=== PATIENT | male | born 1965 | race African-American/Black ===

== ENCOUNTER 2017-06-27 14:02 | Observation (INO) | payer SELFPAY ==
[~2017-06-27] VITALS: Ht 172.7 cm; Wt 82.6 kg
[2017-06-27] MEDS ORDERED: ASPIRIN 81 MG CHEW (CHILDREN'S ASA) PO ONE (14:15)
[2017-06-27 14:21] LABS: BASOPHILS # (AUTO) 0.1 10^3/uL (0.0-0.1); BASOPHILS % (AUTO) 1 % (0-10); EOSINOPHILS # (AUTO) 0.1 10^3/uL (0.0-0.3); EOSINOPHILS % (AUTO) 1 % (0-10); HEMATOCRIT 38 % (40-54); HEMOGLOBIN 14.1 G/DL (13.3-17.7); LYMPHOCYTES % (AUTO) 33 % (12-44); MEAN CORPUSCULAR HEMOGLOBIN 30 PG (25-34); MEAN CORPUSCULAR HGB CONC 37 G/DL (32-36); MEAN CORPUSCULAR VOLUME 81 FL (80-99); MEAN PLATELET VOLUME 11.2 FL (7.4-10.4); MONOCYTES # (AUTO) 0.5 X 10^3 (0.0-1.0); MONOCYTES % (AUTO) 5 % (0-12); NEUTROPHILS # (AUTO) 5.4 X 10^3 (1.8-7.8); NEUTROPHILS % (AUTO) 60 % (42-75); PLATELET COUNT 274 10^3/uL (130-400); RED BLOOD COUNT 4.69 10^6/uL (4.35-5.85); RED CELL DISTRIBUTION WIDTH 14.7 % (10.0-14.5)
--- NOTE | 2017-06-27 14:24 | ED Chest Pain ---
General Stated Complaint: CP Source: patient Exam Limitations: no limitations History of Present Illness Date Seen by Provider: Jun 27, 2017 Time Seen by Provider: 14:04 Initial Comments Here with report of central chest pain that goes to his back. She is very vague in the descriptions and admits to drinking quite a bit of beer today. He states that he basically started drinking after he got up this morning. States the chest pain started yesterday but he had to go to work. He works at [employer]. He did work all day yesterday and went home last night. This morning, after drinking quite a bit, he thought that he probably ought to get his chest pain checked out. It is unclear chest pain this morning but may have had some. He denies chest pain currently. He does admit to taking 2 aspirin but is not sure if they are baby aspirin or regular strength but they were from [facility]. Denies nausea, vomiting, sweating or weakness. 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 NTG SL INSTRUCTIONAL SYSTEMS SPECIALIST: No Associated Symptoms: back pain, No fatigue, No nausea/vomiting, No shortness of breath, No weakness Allergies and Home Medications Allergies Coded Allergies: No Known Drug Allergies (Unverified , 06/27/17) Review of Systems Constitutional: see HPI, No chills, No fever EENTM: No Symptoms Reported Respiratory: No Symptoms Reported Cardiovascular: See HPI, Chest Pain, Denies Edema Gastrointestinal: Denies Nausea, Denies Vomiting Genitourinary: No Symptoms Reported Musculoskeletal: see HPI, back pain, No neck pain Skin: no symptoms reported Psychiatric/Neurological: No Symptoms Reported All Other Systems Reviewed Negative Unless Noted: Yes Past Ahiqmnv-Luflmj-Tsywqi Hx Patient Social History Alcohol Use: Regular Use Recreational Drug Use: No Smoking Status: Never a Smoker Surgeries History of Surgeries: Yes Surgeries: Orthopedic Respiratory History of Respiratory Disorde: No Cardiovascular History of Cardiac Disorders: No Neurological History of Neurological Disord: No Genitourinary History of Genitourinary Disor: No Gastrointestinal History of Gastrointestinal Di: No Musculoskeletal History of Musculoskeletal Dis: No 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) Reviewed Nursing Assessment Reviewed/Agree w Nursing PMH: Yes Family Medical History Significant Family History: No Pertinent Family Hx Physical Exam Vital Signs Vital Signs - First Documented Capillary Refill : General Appearance: No Apparent Distress, WD/WN, Other (inebriated with slurred speech) HEENT: PERRL/EOMI, Pharynx Normal Neck: Non Tender, Supple Respiratory: Lungs Clear, Normal Breath Sounds Cardiovascular: Regular Rate, Rhythm, No Murmur Gastrointestinal: Non Tender, Soft Extremity: Normal Range of Motion, Non Tender Neurologic/Psychiatric: Alert, Oriented x3 Skin: Normal Color, Warm/Dry Progress/Results/Core Measures Results/Orders Lab Results Laboratory Tests Test 06/27/17 14:13 06/27/17 14:56 06/27/17 16:08 Range/Units White Blood Count 9.0 4.3-11.0 10^3/uL Red Blood Count 4.69 4.35-5.85 10^6/uL Hemoglobin 14.1 13.3-17.7 G/DL Hematocrit 38 L 40-54 % Mean Corpuscular Volume 81 80-99 FL Mean Corpuscular Hemoglobin 30 25-34 PG Mean Corpuscular Hemoglobin Concent 37 H 32-36 G/DL Red Cell Distribution Width 14.7 H 10.0-14.5 % Platelet Count 274 130-400 10^3/uL Mean Platelet Volume 11.2 H 7.4-10.4 FL Neutrophils (%) (Auto) 60 42-75 % Lymphocytes (%) (Auto) 33 12-44 % Monocytes (%) (Auto) 5 0-12 % Eosinophils (%) (Auto) 1 0-10 % Basophils (%) (Auto) 1 0-10 % Neutrophils # (Auto) 5.4 1.8-7.8 X 10^3 Lymphocytes # (Auto) 3.0 1.0-4.0 X 10^3 Monocytes # (Auto) 0.5 0.0-1.0 X 10^3 Eosinophils # (Auto) 0.1 0.0-0.3 10^3/uL Basophils # (Auto) 0.1 0.0-0.1 10^3/uL Prothrombin Time 11.9 L 12.2-14.7 SEC INR Comment 0.9 0.8-1.4 Activated Partial Thromboplast Time 25 24-35 SEC D-Dimer < 0.27 0.00-0.49 UG/ML Sodium Level 146 H 135-145 MMOL/L Potassium Level 4.7 3.6-5.0 MMOL/L Chloride Level 109 H 98-107 MMOL/L Carbon Dioxide Level 24 21-32 MMOL/L Anion Gap 13 5-14 MMOL/L Blood Urea Nitrogen 20 H 7-18 MG/DL Creatinine 1.22 0.60-1.30 MG/DL Estimat Glomerular Filtration Rate > 60 BUN/Creatinine Ratio 16 Glucose Level 85 70-105 MG/DL Calcium Level 9.2 8.5-10.1 MG/DL Magnesium Level 2.5 H 1.8-2.4 MG/DL Total Bilirubin 0.2 0.1-1.0 MG/DL Aspartate Amino Transf (AST/SGOT) 37 H 5-34 U/L Alanine Aminotransferase (ALT/SGPT) 27 0-55 U/L Alkaline Phosphatase 107 40-136 U/L Myoglobin 87.1 104.8 H 10.0-92.0 NG/ML Troponin I < 0.30 < 0.30 <0.30 NG/ML Total Protein 8.0 6.4-8.2 GM/DL Albumin 4.5 3.2-4.5 GM/DL Amylase Level 166 H 25-125 U/L Lipase 13 8-78 U/L Salicylates Level < 5.0 L 5.0-20.0 MG/DL Acetaminophen Level < 10 L 10-30 UG/ML Serum Alcohol 319 *H <10 MG/DL Urine Opiates Screen NEGATIVE NEGATIVE Urine Oxycodone Screen NEGATIVE NEGATIVE Urine Methadone Screen NEGATIVE NEGATIVE Urine Propoxyphene Screen NEGATIVE NEGATIVE Urine Barbiturates Screen NEGATIVE NEGATIVE Ur Tricyclic Antidepressants Screen NEGATIVE NEGATIVE Urine Phencyclidine Screen NEGATIVE NEGATIVE Urine Amphetamines Screen NEGATIVE NEGATIVE Urine Methamphetamines Screen NEGATIVE NEGATIVE Urine Benzodiazepines Screen NEGATIVE NEGATIVE Urine Cocaine Screen NEGATIVE NEGATIVE Urine Cannabinoids Screen NEGATIVE NEGATIVE My Orders Orders - YUMIKO BRITO MD Cbc With Automated Diff (06/27/17 14:10) Magnesium (06/27/17 14:10) Chest 1 View, Ap/Pa Only (06/27/17 14:10) Ekg Tracing (06/27/17 14:10) Cardiac Profile 1 (06/27/17 14:10) Comprehensive Metabolic Panel (06/27/17 14:10) Myoglobin Serum (06/27/17 14:10) Protime With Inr (06/27/17 14:10) Partial Thromboplastin Time (06/27/17 14:10) O2 (06/27/17 14:10) Monitor-Rhythm Ecg Trace Only (06/27/17 14:10) Lipid Panel (06/28/17 06:00) Aspirin Chewable Tablet (Baby Aspirin Ch (06/27/17 14:15) Saline Lock/Iv-Start (06/27/17 14:10) Lipase (06/27/17 14:10) Amylase (06/27/17 14:10) Fibrin Degradation Products (06/27/17 14:10) Acetaminophen (06/27/17 14:10) Alcohol (06/27/17 14:10) Drug Screen Stat (Urine) (06/27/17 14:10) Salicylate (06/27/17 14:10) Ns Iv 500 Ml (Sodium Chloride 0.9%) (06/27/17 14:25) Troponin I (06/27/17 16:28) Myoglobin Serum (06/27/17 16:28) Ns Iv 500 Ml (Sodium Chloride 0.9%) (06/27/17 16:28) Ekg Tracing (06/27/17 16:28) Medications Given in ED Current Medications Medications Dose Ordered Sig/Radha Route Start Time Stop Time Status Last Admin Dose Admin Aspirin 324 mg ONCE ONCE PO 06/27/17 14:15 06/27/17 14:16 DC 06/27/17 14:21 324 MG Sodium Chloride 500 ml @ 0 mls/hr Q0M ONCE IV 06/27/17 14:25 06/27/17 14:26 DC 06/27/17 14:45 0 MLS/HR Sodium Chloride 500 ml @ 0 mls/hr Q0M ONCE IV 06/27/17 16:28 06/27/17 16:30 DC 06/27/17 17:13 0 MLS/HR Vital Signs/I&O Vital Sign - Last 12Hours 06/27/17 06/27/17 06/27/17 14:04 14:04 14:04 Pulse 88 Resp 14 B/P (MAP) 169/110 (129) Pulse Ox 98 98 O2 Delivery Room Air Room Air Room Air Progress Note : Progress Note Seen and evaluated. IV, labs, EKG and chest x-ray ordered. ASA 324 mg by mouth ordered as patient's history is unreliable. Normal saline 500 mL bolus. We will add drug screen and alcohol screen given his current inebriation. 1530 : Patient still without chest pain. We will re-evaluate troponin and EKG at a greater than 2 hour ever and reevaluate for inability to send home safely. 1710 : EKG unchanged. Troponin still less than 0.30, myoglobin has elevated. In this setting, admission is indicated. I did discuss the case with Dr. Baldwin and she accepts patient for admission, observation status. I did discuss the case with Dr. Rodriguez and he accepts patient for consult. 2-D cardiac echo in the a.m. This all was discussed with the patient who agrees to admission. ECG Initial ECG Impression Date: Jun 27, 2017 Initial ECG Impression Time: 14:04 Initial ECG Rate: 89 Initial ECG Rhythm: Normal Sinus Comment Sinus rhythm with normal axis. No evidence of ST elevation. No previous available for comparison. Interpreted by me. EKG : EKG Time: 16:29 Rate: 87 ECG Comparisson: Unchanged ECG Impression: Normal Comment Sinus rhythm with left atrial abnormality. Overall unchanged from previous done earlier today. No evidence of ST elevation TN. Interpreted by me. Diagnostic Imaging Diagonstic Imaging: Xray Plain Films/CT/US/NM/MRI: chest Comments VIA [facility], [facility]. [place], [place] NAME: TORI BASILIO [facility] REC#: [id number] PT STATUS: REG ER : 1965 PHYSICIAN: YUMIKO BRITO MD ADMIT DATE: 06/27/17/ER Draft Date of Exam:06/27/17 CHEST 1 VIEW, AP/PA ONLY EXAMINATION: Portable erect AP chest obtained at 232h. INDICATION: Chest pain The heart size is within normal limits and stable when compared to 02/22/2008. The crowded bronchovascular markings in the right infrahilar region seen on the prior study are again evident and no different. There is no sign of failure, pneumonia or a pleural effusion to suggest an acute abnormality. The mediastinum is not widened. The osseous structures are intact. There is deformity of the left clavicle due to prior trauma. IMPRESSION: There is no evidence for an acute cardiopulmonary abnormality. Dictated on workstation # [id number] Dict: 06/27/17 1436 Trans: 06/27/[address] [place] [address] [id number] Interpreted by: MATEO BARRIOS MD Electronically signed by: Departure Communication (Admissions) Time/Spoke to Admitting Phy: 17:10 Time/Spoke to Consulting Phy: 17:14 Impression Impression: Primary Impression: Chest pain Qualified Codes: R07.9 - Chest pain, unspecified Additional Impression: Hypertension Qualified Codes: I10 - Essential (primary) hypertension Disposition: ADMITTED INPATIENT Condition: Stable Admissions Decision to Admit Reason: Admit from ER (General) Decision to Admit/Date: Jun 27, 2017 Time/Decision to Admit Time: 17:10 Departure-Patient Inst. Referrals: NO,LOCAL PHYSICIAN (PCP/Family) Primary Care Physician YUMIKO BRITO MD Jun 27, 2017 14:24
[2017-06-27] MEDS ORDERED: NS IV 500 ML 500 ML IV ONE ×2 (14:25→16:28)
[2017-06-27 14:30] LABS: INR 0.9 (0.8-1.4); PROTHROMBIN TIME PATIENT 11.9 SEC (12.2-14.7)
[2017-06-27 14:39] LABS: ALANINE AMINOTRANSFERASE 27 U/L (0-55); ALBUMIN 4.5 GM/DL (3.2-4.5); ALKALINE PHOSPHATASE 107 U/L (40-136); AMYLASE 166 U/L (25-125); BILIRUBIN,TOTAL 0.2 MG/DL (0.1-1.0); BUN/CREATININE RATIO 16; CALCIUM 9.2 MG/DL (8.5-10.1); CARBON DIOXIDE 24 MMOL/L (21-32); CHLORIDE 109 MMOL/L (98-107); CREATININE SERUM 1.22 MG/DL (0.60-1.30); GFR ESTIMATED > 60; GLUCOSE 85 MG/DL (70-105); LIPASE 13 U/L (8-78); MAGNESIUM 2.5 MG/DL (1.8-2.4); POTASSIUM 4.7 MMOL/L (3.6-5.0); SODIUM 146 MMOL/L (135-145)
--- NOTE | 2017-06-27 14:41 | Diagnostic Imaging Report ---
EXAMINATION: Portable erect AP chest obtained at 232h. INDICATION: Chest pain The heart size is within normal limits and stable when compared to 02/22/2008. The crowded bronchovascular markings in the right infrahilar region seen on the prior study are again evident and no different. There is no sign of failure, pneumonia or a pleural effusion to suggest an acute abnormality. The mediastinum is not widened. The osseous structures are intact. There is deformity of the left clavicle due to prior trauma. IMPRESSION: There is no evidence for an acute cardiopulmonary abnormality. Dictated by: Dictated on workstation # [id number]
[2017-06-27 14:46] LABS: MYOGLOBIN SERUM 87.1 NG/ML (10.0-92.0)
[2017-06-27 14:50] LABS: SALICYLATE < 5.0 MG/DL (5.0-20.0)
[2017-06-27 14:51] LABS: ACETAMINOPHEN < 10 UG/ML (10-30)
[2017-06-27 15:15] LABS: AMPHETAMINE SCREEN, URINE NEGATIVE (NEGATIVE); BARBITURATE SCREEN URINE NEGATIVE (NEGATIVE); BENZODIAZEPINES SCREEN URINE NEGATIVE (NEGATIVE); CANNABINOID SCREEN, URINE NEGATIVE (NEGATIVE); COCAINE SCREEN URINE NEGATIVE (NEGATIVE); METHADONE STAT NEGATIVE (NEGATIVE); METHAMPHETAMINE SCREEN URINE S NEGATIVE (NEGATIVE); OPIATE SCREEN URINE NEGATIVE (NEGATIVE); OXYCODONE STAT NEGATIVE (NEGATIVE); PROPOXYPHENE STAT NEGATIVE (NEGATIVE); TRICYCLIC ANTIDEPRESSANTS SCRE NEGATIVE (NEGATIVE)
[2017-06-27 16:53] LABS: MYOGLOBIN SERUM 104.8 NG/ML (10.0-92.0)
[2017-06-27] MEDS ORDERED: morphine INJ 4 MG/ML 1 ML (VIAL/SYRINGE) IV PRN (18:00)
[2017-06-27] MEDS ORDERED: NITROGLYCERIN 0.4 MG SL TABS BTL 25'S SL PRN (18:00)
[2017-06-27] MEDS: NS IV 1000 ML 1,000 ML IV SCH (18:30)
[2017-06-27 20:00] VITALS: BP 180/97
[2017-06-27] MEDS ORDERED: amLODIPine 10 MG (NORVASC) TAB PO ONE (20:00)
[2017-06-28 00:20] VITALS: BP 121/64
[2017-06-28 04:20] VITALS: BP 120/72
[2017-06-28 05:22] LABS: BASOPHILS # (AUTO) 0.1 10^3/uL (0.0-0.1); BASOPHILS % (AUTO) 1 % (0-10); EOSINOPHILS # (AUTO) 0.4 10^3/uL (0.0-0.3); EOSINOPHILS % (AUTO) 5 % (0-10); HEMATOCRIT 39 % (40-54); HEMOGLOBIN 14.1 G/DL (13.3-17.7); LYMPHOCYTES # (AUTO) 2.4 X 10^3 (1.0-4.0); LYMPHOCYTES % (AUTO) 25 % (12-44); MEAN CORPUSCULAR HEMOGLOBIN 29 PG (25-34); MEAN CORPUSCULAR HGB CONC 36 G/DL (32-36); MEAN CORPUSCULAR VOLUME 81 FL (80-99); MEAN PLATELET VOLUME 11.7 FL (7.4-10.4); MONOCYTES # (AUTO) 0.6 X 10^3 (0.0-1.0); MONOCYTES % (AUTO) 6 % (0-12); NEUTROPHILS # (AUTO) 6.1 X 10^3 (1.8-7.8); NEUTROPHILS % (AUTO) 64 % (42-75); PLATELET COUNT 146 10^3/uL (130-400); RED BLOOD COUNT 4.79 10^6/uL (4.35-5.85); RED CELL DISTRIBUTION WIDTH 14.9 % (10.0-14.5); WHITE BLOOD COUNT 9.6 10^3/uL (4.3-11.0)
[2017-06-28 05:40] LABS: ALANINE AMINOTRANSFERASE 22 U/L (0-55); ALBUMIN 3.9 GM/DL (3.2-4.5); ALKALINE PHOSPHATASE 94 U/L (40-136); BILIRUBIN,TOTAL 0.5 MG/DL (0.1-1.0); BUN/CREATININE RATIO 17; CALCIUM 8.2 MG/DL (8.5-10.1); CARBON DIOXIDE 15 MMOL/L (21-32); CHLORIDE 106 MMOL/L (98-107); CREATININE SERUM 0.83 MG/DL (0.60-1.30); GFR ESTIMATED > 60; GLUCOSE 66 MG/DL (70-105); POTASSIUM 4.4 MMOL/L (3.6-5.0); SODIUM 136 MMOL/L (135-145); TOTAL PROTEIN 7.1 GM/DL (6.4-8.2)
[2017-06-28 05:49] LABS: CHOLESTEROL 216 MG/DL (< 200); HDL CHOLESTEROL 82 MG/DL (40-60); TRIGLYCERIDES 46 MG/DL (<150); VLDL CHOLESTEROL 9 MG/DL (5-40)
[2017-06-28] MEDS ORDERED: INFLUENZA TRIvalent 2017-2018 0.5 ML/45 MCG SYR IM ONE (07:15)
[2017-06-28] MEDS: NS IV 1000 ML 1,000 ML IV SCH (07:44)
[2017-06-28 08:30] VITALS: BP 136/76
[2017-06-28] MEDS ORDERED: ASPIRIN E.C. 325 MG (ECOTRIN) TABLET PO SCH (09:00)
--- NOTE | 2017-06-28 10:39 | Short Stay Summary-Hospitalist ---
HPI History of Present Illness: HPI/Chief Complaint Pt is a 51yoAAM who presented to the ER with chest pain. He reports he first had chest pain on 06/25 while he was eating a bologna sandwich. He denies any previous history of heart disease or chest pain. His pain then recurred yesterday while he was drinking. He was not doing anything exertional when it started though he doesn't remember exactly what he was doing when it began. He stated it was in the center of his chest and radiated to his back. It is now resolved. He denied any radiation to jaw or arm, any diaphoresis, nausea, dyspnea associated with it. He does not smoke. Source: patient Date Seen 06/28/17 Time Seen by Provider: 10:10 Attending Physician Lizzeth Baldwin MD PCP No,Local Physician Referring Physician Date of Admission Jun 27, 2017 at 5:17 pm Home Medications & Allergies Home Medications Reviewed patient Home Medication Reconciliation Form Allergies Allergies Coded Allergies No Known Drug Allergies (Unverified06/27/17) Past Pzlhcvz-Uobxnt-Yalech Hx Patient Social History Employed/Student: employed Alcohol Use: Regular Use (12 pack on weekends) Number of Drinks Today: 12 Alcohol Beverage of Choice: Beer Recreational Drug Use: No Smoking Status: Never a Smoker Physical Abuse Screen: No Sexual Abuse: No Recent Foreign Travel: No Contact w/other who traveled: No Recent Hopitalizations: No Recent Infectious Disease Expo: No Seasonal Allergies Seasonal Allergies: No Surgeries No Respiratory No Currently Using CPAP: No Currently Using BIPAP: No Cardiovascular Yes Neurological No Reproductive System Sexually Transmitted Disease: No HIV/AIDS: No Genitourinary No Gastrointestinal No 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) Endocrine History of Endocrine Disorders: No HEENT History of HEENT Disorders: No Cancer No Psychosocial History of Psychiatric Problem: No Integumentary History of Skin or Integumenta: No Blood Transfusions History of Blood Disorders: No Reviewed Nursing Assessment Reviewed/Agree w Nursing PMH: Yes Family Medical History Significant Family History: Heart Disease (mother had DC at 83yo) Family Hx: Myocardial infarction 19 MOTHER G8 BROTHER G8 SISTER Neoplasm 19 FATHER Review of Systems Constitutional: No chills, No fever EENTM: No blurred vision, No double vision, No nose congestion, No throat pain Respiratory: No cough, No dyspnea on exertion, No short of breath Cardiovascular: chest pain, No edema, No Hx of Intervention, No palpitations, No syncope Gastrointestinal: No abdominal pain, No constipation, No diarrhea, No nausea, No vomiting Genitourinary: No dysuria, No frequency Musculoskeletal: No joint pain, No muscle pain Skin: No lesions, No rash Psychiatric/Neurological: Denies Headache, Denies Numbness, Denies Tingling Physical Exam Physical Exam Vital Signs Vital Signs - First Documented 06/27/17 20:00 Temp 98.4 Capillary Refill : Less Than 3 Seconds General Appearance: No Apparent Distress, WD/WN HEENT: PERRL/EOMI, Moist Mucous Membranes Neck: Non Tender, Supple Respiratory: Chest Non Tender, Lungs Clear, No Respiratory Distress Cardiovascular: Regular Rate, Rhythm, No JVD, No Murmur, Normal Peripheral Pulses Gastrointestinal: Normal Bowel Sounds, Non Tender, Soft Extremity: Normal Capillary Refill, No Calf Tenderness, No Pedal Edema Neurologic/Psychiatric: Alert, Oriented x3, Normal Mood/Affect Skin: Normal Color, Warm/Dry Results Results/Procedures Lab Laboratory Tests 06/27/17 14:13 06/28/17 04:58 Radiology Date of Exam:06/27/17 CHEST 1 VIEW, AP/PA ONLY EXAMINATION: Portable erect AP chest obtained at 232h. INDICATION: Chest pain The heart size is within normal limits and stable when compared to 02/22/2008. The crowded bronchovascular markings in the right infrahilar region seen on the prior study are again evident and no different. There is no sign of failure, pneumonia or a pleural effusion to suggest an acute abnormality. The mediastinum is not widened. The osseous structures are intact. There is deformity of the left clavicle due to prior trauma. IMPRESSION: There is no evidence for an acute cardiopulmonary abnormality. Short Stay Diagnosis Discharge Diagnosis-Short Stay Admission Diagnosis Chest pain Final Discharge Diagnosis atypical chest pain Conclusion Plan See problems Diagnosis/Problems Diagnosis/Problems (1) Chest pain Status: Acute Assessment & Plan: Seem atypical in nature No evidence of ACS Troponins neg x3 Received ASA in ER Cardiology consulted, appreciate recs ASCVD risk is 4.3%- will not initiate statin at this time Qualifiers: Qualified Codes: R07.9 - Chest pain, unspecified (2) Alcohol intoxication Status: Acute Assessment & Plan: ETOH 319 on arrival Has never had withdrawal before Recommend avoidance of binge drinking Qualifiers: Qualified Codes: F10.920 - Alcohol use, unspecified with intoxication, uncomplicated (3) Hypertension Status: Acute Assessment & Plan: Continue Norvas as much improved Qualifiers: Qualified Codes: I10 - Essential (primary) hypertension Clinical Quality Measures AMI/AHF: ASA po Prior to arrival: Yes DVT/VTE Risk/Contraindication: Risk Factor Score Per Nursin RFS Level Per Nursing on Admit: 1=Low/No VTE PPX LIZZETH BALDWIN MD Jun 28, 2017 10:39
[2017-06-28] MEDS ORDERED: ASPI-999 PO (11:35)
[2017-06-28] MEDS ORDERED: AMLO5TAB4 PO (11:35)
--- NOTE | 2017-06-28 11:50 | Consultation-Cardiology ---
HPI-Cardiology Cardiology Consultation: Date of Consultation 06/28/17 Date of Admission Attending Physician Lizzeth Baldwin MD Admitting Physician No,Local Physician Consulting Physician Gaurav RODRIGUEZ MD HPI: Time Seen by Provider: 11:50 Chief Complaint: Chest pain This is a 51-year-old gentleman who presented to the ER with chest pain. Recurrent episodes of chest pain. He has no prior history of any cardiac disease. He does have history of hypertension new-onset. Chest pain started on the day of admission during alcohol intake. History is vague. Substernal chest pain with radiation to the back. No further chest pain on my interview. No radiation and no other associated cardiac symptoms. No exacerbating or relieving factors. No significant premature family history of CAD. Patient denies smoking but significant history of alcohol. Denies other street drugs. Review of Systems-Cardiology Review of Systems Constitutional: No As described under HPI, No no symptoms reported, No chills, No fever, No lightheadedness, No malaise, No tiredness, No weight loss, No weight gain, No other Eyes: No As described under HPI, No no symptoms reported, No blindness, No blurred vision, No contact lenses, No drainage, No decreased acuity, No foreign body sensation, No glasses, No inflammation, No pain, No photophobia, No previous injury, No shadows, No tunnel vision, No other, No vision change Ears/Nose/Throat: No As described under HPI, No no symptoms reported, No chronic hearing loss, No epistaxis, No ear discharge, No ear pain, No loose teeth, No mouth pain, No mouth swelling, No nasal drainage, No nose pain, No recent hearing loss, No throat pain, No throat swelling, No ulcerations, No other Respiratory: No no symptoms reported, No As described under HPI, No cough, No orthopnea, No shortness of breath, No SOB with excertion, No SOB at rest, No stridor, No wheezing, No other Cardiovascular: chest pain Gastrointestinal: No no symptoms reported, No As described under HPI, No abdomen distended, No abdominal pain, No blood streaked bowels, No constipation , No diarrhea, No difficulty swallowing, No nausea, No poor appetite, No poor fluid intake, No rectal bleeding, No vomiting, No other, No nausea/vomiting/ diarrhea, No stool coloration changes Genitourinary: No no symptoms reported, No As described under HPI, No burning, No dysuria, No discharge, No frequency, No flank pain, No hematuria, No incontinence, No pain, No urgency, No other, No urine frequency changes, No urine coloration changes Musculoskeletal: No no symptoms reported, No As describe under HPI, No back pain, No gout, No joint pain, No joint swelling, No muscle pain, No muscle stiffness, No neck pain, No other Skin: No no symptoms reported, No As described under HPI, No change in color, No change in hair/nails, No dryness, No lesions, No lumps, No rash, No other, No skin related problems, No ulcerations, No rash on exposed areas, No ulcerations on exposed areas Psychiatric/Neurological: No no symptoms reported, No As described under HPI, No anxiety, No depression, No emotional problems, No headache, No numbness, No pre-existing deficit, No seizure, No tingling, No tremors, No weakness, No other , No focal weakness, No syncope Hematologic: No no symptoms reported, No As described under HPI, No anemia, No blood clots, No easy bleeding, No easy bruising, No swollen glands, No other, No bleeding abnormalities All Other Systems Reviewed Negative Unless Noted: Yes [id number] Hx Patient Social History Employed/Student: employed Alcohol Use: Regular Use (12 pack on weekends) Recreational Drug Use: No Smoking Status: Never a Smoker Recent Foreign Travel: No Recent Infectious Disease Expo: No Physical Abuse Screen: No Sexual Abuse: No Past Medical History PMH As described under Assessment. Family Medical History Family History: Myocardial infarction 19 MOTHER G8 BROTHER G8 SISTER Neoplasm 19 FATHER Allergies and Home Medications Allergies Coded Allergies: No Known Drug Allergies (Unverified , 06/27/17) Home Medications Amlodipine Besylate 5 Mg Tablet, 5 MG PO DAILY, #30 Prescribed by: LIZZETH BALDWIN on 06/28/17 1135 Aspirin 81 Mg Tab.chew, 81 MG PO DAILY, #30 Prescribed by: LIZZETH BALDWIN on 06/28/17 1135 Physical Exam-Cardiology Physical Exam Vital Signs/I&O Vital Sign - Last 12Hours 06/28/17 06/28/17 06/28/17 06/28/17 00:20 01:00 04:20 07:00 Temp 98.5 98.2 Pulse 75 62 68 75 Resp 20 20 B/P (MAP) 121/64 (83) 120/72 (88) Pulse Ox 98 97 O2 Delivery Room Air Room Air Intake and Output 06/28/17 00:00 Intake Total 250 ml Output Total 700 ml Balance -450 ml Capillary Refill : Less Than 3 Seconds Constitutional: appears stated age, AAO x 3 HEENT: PERRL, No normal ENT inspection, No TMs normal, No pharynx normal, No scleral icterus (R), No scleral icterus (L), No pale conjunctivae (R), No pale conjunctivae (L), No photophobia, No TM abnormal (R), No TM abnormal (L), No pharyngeal erythema, No tonsillar exudate, No other, No discharge, No EOMI, hearing is well preserved, No hard of hearing, oral hygience is good, No ulceration, No xanthelasmas are seen Neck: No non-tender, No full range of motion, No supple, No normal inspection, No carotid bruit, No limited range of motion, No lymphadenopathy (R), No lymphadenopathy (L), No tender lateral, No tender midline, No thyromegaly, No other, carotid pulses are 2 + bilaterally, No with good upstrokes Respiratory: chest is bilaterally symmetric, lungs clear to percussion, lungs clear to auscultation Cardiovascular: regular rate-rhythm, No irregularly irregular, No extra beats, No parasternal heave is noted, No JVD, No edema, No bradycardia, No tachycardia , No point of maximal impulse, No cardiac thrills are palpable, S1 and S2, No gallop/S3, No gallop/S4, No diastolic murmur, No systolic murmur, No friction rub, No click, No other Gastrointestinal: No tender, No soft, No round, No distended, No pulsatile mass , No organomegaly, No guarding, No rebound, No tenderness, No hernia, No mass, No audible bowel sounds, No abnormal bowel sounds, No abdominal bruits, No spleenomegaly, No other Rectal: deferred Extremities: normal range of motion, non-tender, normal inspection, No pedal edema, No calf tenderness, No normal capillary refill, No pelvis stable, No calf tenderness, No inflammation, No pedal edema, No slow capillary refill, No swelling, No other, No abrasion, No clubbing, No cyanosis, No ecchymosis, No laceration, No no lower extremity edema bilateral, No significant edema, No tenderness, No wound Neurologic/Psychiatric: No latin american studies professor II-XII nml as tested, no motor/sensory deficits , alert, normal mood/affect, oriented x 3, No abnormal cerebellar tests, No abnormal latin american studies professor II-XII, No abnormal gait, No aphasia, No EOM palsy, No facial droop , No motor weakness, No sensory deficit, No depressed affect, No disoriented x 3 , No other, No grossly intact, No power is 5/5 both on sides Skin: No normal color, No warm/dry, No cyanosis, No cool, No diaphoresis, No damp, No ecchymosis, No jaundice, No mottled, No pallor, No rash, No tattoos/ piercings, No ulcerations, No rash on exposed areas, No ulcerations on exposed areas, No other Data Review Labs Laboratory Tests 06/27/17 14:13: White Blood Count 9.0, Red Blood Count 4.69, Hemoglobin 14.1, Hematocrit 38L, Mean Corpuscular Volume 81, Mean Corpuscular Hemoglobin 30, Mean Corpuscular Hemoglobin Concent 37H, Red Cell Distribution Width 14.7H, Platelet Count 274, Mean Platelet Volume 11.2H, Neutrophils (%) (Auto) 60, Lymphocytes (%) (Auto) 33 , Monocytes (%) (Auto) 5, Eosinophils (%) (Auto) 1, Basophils (%) (Auto) 1, Neutrophils # (Auto) 5.4, Lymphocytes # (Auto) 3.0, Monocytes # (Auto) 0.5, Eosinophils # (Auto) 0.1, Basophils # (Auto) 0.1, Prothrombin Time 11.9L, INR Comment 0.9, Activated Partial Thromboplast Time 25, D-Dimer < 0.27, Sodium Level 146H, Potassium Level 4.7, Chloride Level 109H, Carbon Dioxide Level 24, Anion Gap 13, Blood Urea Nitrogen 20H, Creatinine 1.22, Estimat Glomerular Filtration Rate > 60, BUN/Creatinine Ratio 16, Glucose Level 85, Calcium Level 9.2, Magnesium Level 2.5H, Total Bilirubin 0.2, Aspartate Amino Transf (AST/SGOT ) 37H, Alanine Aminotransferase (ALT/SGPT) 27, Alkaline Phosphatase 107, Myoglobin 87.1, Troponin I < 0.30, Total Protein 8.0, Albumin 4.5, Amylase Level 166H, Lipase 13, Salicylates Level < 5.0L, Acetaminophen Level < 10L, Serum Alcohol 319*H 06/27/17 14:56: Urine Opiates Screen NEGATIVE, Urine Oxycodone Screen NEGATIVE, Urine Methadone Screen NEGATIVE, Urine Propoxyphene Screen NEGATIVE, Urine Barbiturates Screen NEGATIVE, Ur Tricyclic Antidepressants Screen NEGATIVE, Urine Phencyclidine Screen NEGATIVE, Urine Amphetamines Screen NEGATIVE, Urine Methamphetamines Screen NEGATIVE, Urine Benzodiazepines Screen NEGATIVE, Urine Cocaine Screen NEGATIVE, Urine Cannabinoids Screen NEGATIVE 06/27/17 16:08: Myoglobin 104.8H, Troponin I < 0.30 06/28/17 04:58: White Blood Count 9.6, Red Blood Count 4.79, Hemoglobin 14.1, Hematocrit 39L, Mean Corpuscular Volume 81, Mean Corpuscular Hemoglobin 29, Mean Corpuscular Hemoglobin Concent 36, Red Cell Distribution Width 14.9H, Platelet Count 146, Mean Platelet Volume 11.7H, Neutrophils (%) (Auto) 64, Lymphocytes (%) (Auto) 25 , Monocytes (%) (Auto) 6, Eosinophils (%) (Auto) 5, Basophils (%) (Auto) 1, Neutrophils # (Auto) 6.1, Lymphocytes # (Auto) 2.4, Monocytes # (Auto) 0.6, Eosinophils # (Auto) 0.4H, Basophils # (Auto) 0.1, Sodium Level 136, Potassium Level 4.4, Chloride Level 106, Carbon Dioxide Level 15L, Anion Gap 15H, Blood Urea Nitrogen 14, Creatinine 0.83, Estimat Glomerular Filtration Rate > 60, BUN/ Creatinine Ratio 17, Glucose Level 66L, Calcium Level 8.2L, Total Bilirubin 0.5 , Aspartate Amino Transf (AST/SGOT) 32, Alanine Aminotransferase (ALT/SGPT) 22, Alkaline Phosphatase 94, Total Protein 7.1, Albumin 3.9, Triglycerides Level 46 , Cholesterol Level 216H, LDL Cholesterol Direct 109, VLDL Cholesterol 9, HDL Cholesterol 82H 06/28/17 09:05: Troponin I < 0.30 ECG Impression ECG Initial ECG Rhythm: Normal Sinus Initial ECG Impression: Normal A/P-Cardiology Assessment/Admission Diagnosis Chest pain, Alcohol intoxication, Hypertension Plan Chest pain: Acute coronary syndrome ruled out with negative serial troponin. EKG did not show any acute ST-T wave abnormalities. Pharmacological nuclear stress test as an outpatient. Please schedule follow-up with my office. Alcohol intoxication: Recommended abstinence. Hypertension: Amlodipine. Good control now. Okay to discharge with follow-up with my office in the next one to 2 weeks. Thank you for your consultation. Please call me if you have any questions. Ashley Rodriguez MD, FACP, FACC, FSCAI, FHRS, CCDS Interventional Cardiology Cardiac Electrophysiology Vascular Medicine and Endovascular Interventions Clinical Quality Measures AMI/AHF: ASA po Prior to arrival: Yes DVT/VTE Risk/Contraindication: Risk Factor Score Per Nursin RFS Level Per Nursing on Admit: 1=Low/No VTE PPX Gaurav RODRIGUEZ MD Jun 28, 2017 11:50 am
[2017-06-28 13:48] VITALS: BP 136/76
== END 2017-06-28 11:36 | disposition home or self-care (01) ==
LOC: EDUNIT# 14:02 → ER 14:04 → UNDOADMOB 17:17 → 4TH 17:17 → UNDODISOB 06-28 13:31
PROVIDERS: ADMIT Family Medicine; ATTEND Family Medicine
DX: R07.89 Other chest pain (principal); F10.920 Alcohol use, unspecified with intoxication, uncomplicated; I10 Essential (primary) hypertension; Z79.899 Other long term (current) drug therapy
CPT/HCPCS: 36415; 71045; 80053; 80061; 80306; 80320; 80329; 82150; 83690; 83735; 83874; 84484; 85025; 85379; 85610; 85730; 93005; 93041; 96360; 96361; G0378